=== PATIENT | male | born 1950 | race Native Hawaiian/Other Pacific Islander ===

== ENCOUNTER 2019-06-26 12:53 | Emergency (ER) | payer OTHER ==
[~2019-06-26] VITALS: Ht 182.9 cm; Wt 97.1 kg
[2019-06-26 14:06] VITALS: BP 170/69; TEMP 98.4
== END 2019-06-26 14:09 | disposition home or self-care (01) ==
LOC: ED 12:53
DX: M54.89 Other dorsalgia (principal); G89.29 Other chronic pain; Z98.890 Other specified postprocedural states
CPT/HCPCS: 96372; 99283; J1885; J2930

== ENCOUNTER 2019-08-09 19:16 | Outpatient (CLI) | payer OTHER | END 2019-08-09 19:19 | disposition short-term general hospital (02) | LOC: AMB 19:16 | DX: M54.89 Other dorsalgia (principal) | CPT/HCPCS: A0425; A0429 ==

== ENCOUNTER 2019-08-09 19:23 | Emergency (ER) | payer OTHER ==
[~2019-08-09] VITALS: Ht 182.9 cm; Wt 92.5 kg
[2019-08-09 21:40] VITALS: BP 139/78; TEMP 98.7
== END 2019-08-09 21:40 | disposition home or self-care (01) ==
LOC: ED 19:23 → EDBD 19:23 → ED 21:40
DX: G89.4 Chronic pain syndrome (principal)
CPT/HCPCS: 96372; 99283; J1885; J2175; J2360

== ENCOUNTER 2019-08-27 10:18 | Outpatient (CLI) | payer OTHER | END 2019-08-27 19:31 | disposition home or self-care (01) | LOC: MRI 10:18 | DX: Z01.818 Encounter for other preprocedural examination (principal); M54.5 Low back pain; M51.36 Other intervertebral disc degeneration, lumbar region; M47.896 Other spondylosis, lumbar region; M54.16 Radiculopathy, lumbar region; M48.061 Spinal stenosis, lumbar region without neurogenic claudication | CPT/HCPCS: 36415; 82565; 84520; A9576 ==

== ENCOUNTER 2019-09-17 17:03 | Outpatient (CLI) | payer OTHER ==
[2019-09-17] MEDS ORDERED: TIZANIDINE HYDRO4 MG PO (17:51)
[2019-09-17] MEDS ORDERED: ZOHYDRO ER10 M1 PO (17:53)
[2019-09-17] MEDS ORDERED: COLCRYS 0.6MG0.6 MG PO (17:55)
[2019-09-17] MEDS ORDERED: CLON1TAB18 PO (17:56)
[2019-09-17] MEDS ORDERED: DIAZ5TAB20 PO (17:57)
[2019-09-17] MEDS ORDERED: SERT50TA PO (17:57)
[2019-09-17] MEDS ORDERED: LYRICA100 MG PO (17:58)
[2019-09-17] MEDS ORDERED: MOVANTIK25 MG PO (17:59)
== END 2019-09-17 17:06 | disposition short-term general hospital (02) ==
LOC: AMB 17:03
DX: R10.84 Generalized abdominal pain (principal); M79.605 Pain in left leg
CPT/HCPCS: A0425; A0427

== ENCOUNTER 2019-09-17 17:12 | Emergency (ER) | payer OTHER ==
[~2019-09-17] VITALS: Ht 182.9 cm; Wt 92.5 kg
[2019-09-17 17:25] VITALS: TEMP 97.7
[2019-09-17 17:42] LABS: PLATELET COUNT 283 K/uL (142-355)
[2019-09-17] MEDS ORDERED: TIZANIDINE HYDRO4 MG PO (17:51)
[2019-09-17] MEDS ORDERED: ZOHYDRO ER10 M1 PO (17:53)
[2019-09-17 17:55] LABS: POTASSIUM 5.8 mmol/L (3.6-5.2)
[2019-09-17] MEDS ORDERED: COLCRYS 0.6MG0.6 MG PO (17:55)
[2019-09-17] MEDS ORDERED: CLON1TAB18 PO (17:56)
[2019-09-17] MEDS ORDERED: SERT50TA PO (17:57)
[2019-09-17] MEDS ORDERED: DIAZ5TAB20 PO (17:57)
[2019-09-17] MEDS ORDERED: LYRICA100 MG PO (17:58)
[2019-09-17] MEDS ORDERED: MOVANTIK25 MG PO (17:59)
[2019-09-17 22:50] VITALS: BP 141/81
== END 2019-09-17 22:50 | disposition short-term general hospital (02) ==
LOC: ED 17:12
PROVIDERS: Emergency Medicine
DX: N17.9 Acute kidney failure, unspecified (principal); R79.89 Other specified abnormal findings of blood chemistry
CPT/HCPCS: 80053; 82150; 83690; 85027; 85379; 93005; 99285